=== PATIENT | male | born 1950 ===

== ENCOUNTER → 2017-01-28 05:46 | Emergency (ER) | payer BC ==
--- NOTE | 2017-01-28 06:43 | ED ---
I, Oh,Soaysha, scribed for Jn Gutierrez MD on 01/28/17 at 0628 . Complex/Multi-Sys Presentation - HPI Summary HPI Summary: This 66 y/o male presents to ED for "not feeling good" since 0530 AM this morning. Positive diaphoresis, nausea, and chronic back pain at the time of onset when Pt had just gotten up and getting himself. Pt took blood pressure at home and noticed his blood pressure was elevated. PMHx includes known HTN, HLD, and GERD. Primary care involves Dr. Calloway. - History Of Current Complaint Chief Complaint: EDGeneral Time Seen by Provider: 01/28/17 06:22 Hx Obtained From: Patient, Medical Records Onset/Duration: Sudden Onset Timing: Constant Associated Signs And Symptoms: Positive: Nausea, Back Pain - chronic, Diaphoresis. Negative: Vomiting, Fever - Allergies/Home Medications Allergies/Adverse Reactions: Allergies Allergy/AdvReac Type Severity Reaction Status Date / Time No Known Allergies Allergy Verified 01/28/17 05:54 Home Medications: Home Medications Losartan Potassium & Hydrochlo [Hyzaar 50/12.5 mg] 1 tab PO DAILY 01/28/17 [ History Confirmed 01/28/17] PMH/Surg Hx/FS Hx/Imm Hx Cardiovascular History: Reports: Hx Hypercholesterolemia, Hx Hypertension Denies: Hx Pacemaker/ICD GI History: Reports: Hx Gastroesophageal Reflux Disease Sensory History: Reports: Hx Contacts or Glasses Denies: Hx Hearing Aid Opthamlomology History: Reports: Hx Contacts or Glasses Psychiatric History: Denies: Hx Panic Disorder - Surgical History Surgery Procedure, Year, and Place: SX FOR GERD Infectious Disease History: No Infectious Disease History: Denies: Traveled Outside the [place] in Last 30 Days - Family History Known Family History: Positive: Other - Father positive to brain CA - Social History Alcohol Use: Daily Alcohol Amount: 1-3 beers Substance Use Type: Reports: None Smoking Status (MU): Never Smoked Tobacco Review of Systems Positive: Skin Diaphoresis. Negative: Fever Positive: Other - elevated blood pressure Positive: Nausea. Negative: Vomiting Positive: Other - chronic back pain All Other Systems Reviewed And Are Negative: Yes Physical Exam Triage Information Reviewed: Yes Vital Signs On Initial Exam: Initial Vitals Temp Pulse Resp BP Pulse Ox 97.3 F 64 16 192/99 98 01/28/17 05:56 01/28/17 05:56 01/28/17 05:56 01/28/17 05:56 01/28/17 05:56 Vital Signs Reviewed: Yes Appearance: Positive: Well-Appearing, No Pain Distress Skin: Positive: Warm Head/Face: Positive: Normal Head/Face Inspection Eyes: Positive: EVETTE ENT: Positive: Hearing grossly normal Neck: Positive: Supple Respiratory/Lung Sounds: Positive: Clear to Auscultation, Breath Sounds Present Cardiovascular: Positive: RRR Abdomen Description: Positive: Nontender, Soft Bowel Sounds: Positive: Present Musculoskeletal: Positive: Strength/ROM Intact Neurological: Positive: Alert, Oriented to Person Place, Time Psychiatric: Positive: Affect/Mood Appropriate Diagnostics - Vital Signs Vital Signs Temp Pulse Resp BP Pulse Ox 01/28/17 05:56 97.3 F 64 16 192/99 98 - Laboratory Result Diagrams: 01/28/17 06:35 01/28/17 06:35 Lab Statement: Any lab studies that have been ordered have been reviewed, and results considered in the medical decision making process. - EKG 0606 Cardiac Rate: NL - 66 bpm EKG Rhythm: Sinus Rhythm EKG Interpretation: RBBB Complex Multi-Symp Course/Dx Assessment/Plan: This 66 y/o male presents to ED for general feeling of illness "I don't feel well". Pt reports elevated blood pressure, diaphoresis, nausea this morning while he was getting ready to go to work. Negative vomiting or fever. EKG is noted NSR with RBBB. CXR and blood work with trop are ordered in order to r/o cardiac etiologies. Signed out at shift change. - Diagnoses Provider Diagnoses: Nausea Discharge - Discharge Plan Condition: Stable Disposition: OTHER Discharge Disposition Comment: Signed out at shift change. Pending blood work and CXR. Patient Education Materials: Acute Nausea and Vomiting (ED) Referrals: Shaheed Calloway MD [Primary Care Provider] - The documentation as recorded by the Flash auguste Soohyun accurately reflects the service I personally performed and the decisions made by me, Jn Gutierrez MD.
[2017-01-28 07:02] LABS: Hematocrit 42 % (42-52); Hemoglobin 14.4 g/dl (14.0-18.0); Mean Corpuscular HGB Conc 34 g/dl (31-36); Mean Corpuscular Hemoglobin 33 pg (27-31); Mean Corpuscular Volume 98 fL (80-94); Mean Platelet Volume 8 um3 (7.4-10.4); Red Blood Count 4.31 10^6/ul (4.0-5.4); Red Cell Distribution Width 14 % (10.5-15); White Blood Count 7.1 10^3/ul (3.5-10.8)
[2017-01-28 07:14] LABS: Albumin 4.3 g/dL (3.2-5.2); Calcium 9.1 mg/dL (8.6-10.3); EGFR African American 95.9 (>60); EGFR Non-African American 74.5 (>60); Globulin 2.7 g/dL (2-4); Magnesium 1.9 mg/dL (1.9-2.7); Potassium 4.3 mmol/L (3.5-5.0); Total Bilirubin 0.8 mg/dL (0.2-1.0)
--- NOTE | 2017-01-28 08:06 | RAD ---
HISTORY: Weakness COMPARISONS: August 31, 2015 VIEWS: 4: Frontal dual-energy and lateral views of the chest. FINDINGS: CARDIOMEDIASTINAL SILHOUETTE: The cardiomediastinal silhouette is normal. SAULO: The saulo are normal. PLEURA: The costophrenic angles are sharp. No pleural abnormalities are noted. LUNG PARENCHYMA: The lungs are clear. ABDOMEN: The upper abdomen is clear. There is no subphrenic gas. BONES AND SOFT TISSUES: No bone or soft tissue abnormalities are noted. OTHER: None. IMPRESSION: NO ACTIVE CARDIOPULMONARY DISEASE.
[2017-01-28 10:04] LABS: Urine Bilirubin Negative (Negative); Urine Glucose Negative (Negative); Urine Nitrite Negative (Negative)
[2017-01-28 10:34] VITALS: BP 158/86
--- NOTE | 2017-01-29 17:10 | ED ---
Phill Fam Thomas, scribed for Ty Brown MD on 01/28/17 at 0704 . Progress - Progress Note Progress Note: The patient is a sign out from Dr. Gutierrez to Dr. Brown at 07:07. He is pending CXR and bloodwork at time of sign out. The patient reports his ED visit was prompted by nausea, back pain, myalgia, and lightheadedness that began this AM. He also reports that my stomach felt like it was turning. He denies any vomiting [employer]. He also noted that prior to arrival his blood pressure was 198/98. During examination at 07:46, the patient denies any pains. Pt reports diaphoresis that began this AM and it felt like my stomach was turning. In the ED the patient also complains of lightheadedness and myalgia. His nausea is somewhat relieved. He denies any CP, SOB, palpitations, fevers, chills, and coughs. The patient reports that he ate a BLT two days ago. PHYSICAL EXAM: VITAL SIGNS: Reviewed. GENERAL: ~Patient is a well-developed and nourished male who is lying comfortable in the stretcher. ~Patient is not in any acute respiratory distress. HEAD AND FACE: No signs of trauma. ~No ecchymosis, hematomas or skull depressions. No sinus tenderness. EYES: PERRLA, EOMI x 2, No injected conjunctiva, no nystagmus. EARS: Hearing grossly intact. Ear canals and tympanic membranes are within normal limits. MOUTH: Oropharynx within normal limits. NECK: Supple, trachea is midline, no adenopathy, no JVD, no carotid bruit, no c- spine tenderness, neck with full ROM. CHEST: Symmetric, no tenderness at palpation LUNGS: Clear to auscultation bilaterally. No wheezing or crackles. CVS: Regular rate and rhythm, S1 and S2 present, no murmurs or gallops appreciated. ABDOMEN: Soft, non-tender. No signs of distention. No rebound no guarding, and no masses palpated. Bowel sounds are normal. EXTREMITIES: FROM in all major joints, no edema, no cyanosis or clubbing. NEURO: Alert and oriented x 3. No acute neurological deficits. Speech is normal and follows commands. SKIN: Dry and warm CXR reveals no active cardiopulmonary disease. He is diagnosed with nausea and discharged home. Course/Dx - Course Course Of Treatment: This patient was signed out from Dr. Gutierrez to Dr. Brown at 07:00. Test results are without acute significant abnormality. I examined the patient this morning and all his symptoms have resolved. He is asymptomatic and he has no complaints. At the time of shift change we were awaiting UA, which was negative. The patient is denying CP, SOB, and abd pain; therefore, I will discharge the patient home with follow up by his PCP. At this point I did not do any further workup and did not do any more imaging because the patient is completely asymptomatic. He is alert and oriented x3 and hemodynamically stable. He is diagnosed with nausea and discharged home. I discussed all the findings and test results with the patient. Patient was instructed to return to the emergency room immediately if any of the symptoms return or worsens. Plan of care was discussed with the patient and understands and agrees. All questions were answered at patient satisfaction. There were no further complaints or concerns. - Diagnoses Provider Diagnoses: Nausea The documentation as recorded by the Phill auguste Thomas accurately reflects the service I personally performed and the decisions made by me, Ty Brown MD.
== END ==
LOC: ED 05:46
DX: R11.0 Nausea (principal); M54.9 Dorsalgia, unspecified; R61 Generalized hyperhidrosis; I45.10 Unspecified right bundle-branch block; E78.00 Pure hypercholesterolemia, unspecified; I10 Essential (primary) hypertension; K21.9 Gastro-esophageal reflux disease without esophagitis
CPT/HCPCS: 36415; 71020; 80053; 81003; 83605; 83735; 84484; 85025; 93005; 99283